=== PATIENT | male | born 1970 | race Caucasian/White ===

== ENCOUNTER 2016-05-21 15:07 | Inpatient (IN) | payer OTHER ==
[~2016-05-21] VITALS: Ht 177.8 cm; Wt 109.7 kg
[2016-05-21] VITALS (12 sets, daily range): BP systolic 131–157; BP diastolic 72–98; PULSE 65–79; RESP 14–19; O2SAT 98–99
--- NOTE | 2016-05-21 15:46 | ED.REPORT ---
HPI-Chest Pain 40 and Over Date of Service May 21, 2016 ED Provider: Dr. Johnson Pt is a 45 y/o male w/ a hx of uncontrolled HTN, former smoking, presenting to the ED via EMS c/o substernal CP onset 1.5 hours ago. 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 Upon arrival of EMS, he was in severe distress with associated severe chest pain. EKG on route in the presence of severe chest pain showed signs of posterior STEMI. He was given nitro x5 prior to arrival with almost complete relief of his chest pain upon arrival to the ED. He is a former smoker. He has been diagnosed with HTN but does not take antihypertensives. He has never had a stress test or major surgeries. Nursing Notes Stated Complaint: CHEST PAIN Nursing Notes Reviewed: Yes Allergies: Coded Allergies: No Known Allergies (Unverified , 05/21/16) Scheduled Aspirin (Aspirin) 81 Mg Tablet 81 MG PO DAILY General Time Seen by MD: 15:46 Chief Complaint Chest pain Hx Obtained From: Patient, EMS Arrived By: Ambulance Sudden in Onset?: Yes Onset Occurred: 1 - 4 hours ago Symptom Duration: Since onset Location: : Substernal Quality: Heaviness Migration/Movement: Reports: None Severity: Current: Mild Severity: Maximum: Severe Exacerbated by: Exertion, moderate, Exertion, heavy Relieved by: Nitroglycerin - EMS > 3 Similar Sx Previous: No Risk Factors HEART Score HEART for MACE: High index of susp (2), Signif ST-depression (2), Age 45 - 65 ( 1), 3+ CAD risk factors (2) HEART for MACE Score: 8-10 (high risk 50%-65%) Past Medical History Past Medical History Hypertension - uncontrolled Past Surgical History None reported Smoking History Former Smoker Ambulatory Status Independent Review of Systems Constitutional: Denies: Chills, Fever Respiratory: Denies: Non-productive cough Cardiovascular: Reports: Chest pain GI: Denies: Nausea, Vomiting Complete sys rev & neg: except as marked. Physical Exam Initial Vital Signs Vital Signs (First) Date Time Temp Pulse Resp B/P Pulse Ox O2 Delivery O2 Flow Rate FiO2 05/21/16 15:55 36.4 77 14 131/72 98 Room Air Initial VS: Reviewed, Vital signs normal Head / Eyes: Atraumatic, Normocephalic, PERRL ENT: Mucous membranes moist, Conjunctiva normal, No scleral icterus Neck: Supple, Full range of motion Extremities: Vascular intact, Neuro intact, No swelling, No tenderness Skin: Warm, Dry, No cyanosis Neurologic: Alert, Oriented, Nonfocal Psychiatric: Mood/affect normal, Behavior normal, Normal thought content General/Constitutional: Awake, Alert, Cooperative, Not toxic appearing Distress / Hydration: Positive: Distress mild Respiratory / Chest: Atraumatic, Breath sounds NL, Breath sounds = bilat, No respiratory distress, No rales, No rhonchi, No wheezing, No retractions, No stridor, No chest tenderness, No chest wall deformity, No crepitus Cardiovascular: Heart rate NL, Regular rhythm, Heart sounds NL, No gallop, No murmurs, No rubs, Cap refill not delayed, Peripheral circulation NL Abdomen: Atraumatic, Soft, Non-tender, No guarding, No rebound, No palpable mass Interpretation & Diagnostics Lab Results Interpretation Result Diagram: 05/21/16 1558 05/21/16 1558 Test 05/21/16 15:58 05/21/16 17:15 White Blood Count 11.0th/mm3 (3.8-10.1) Red Blood Count 4.78mil/mm3 (4.40-5.80) Hemoglobin 14.4g/dL (13.8-17.2) Hematocrit 41.0% (41.0-50.0) Mean Corpuscular Volume 85.8fL (81-100) Mean Corpuscular Hemoglobin 30.1pg (27.0-35.0) Mean Corpuscular Hemoglobin Concent 35.1% (32.0-37.0) Red Cell Distribution Width 12.5% (12.3-15.4) Platelet Count 243bil/L (150-400) Neutrophils (%) (Auto) 71.7% (40-74) Lymphocytes (%) (Auto) 20.4% (14-46) Monocytes (%) (Auto) 5.9% (4-12) Eosinophils (%) (Auto) 1.3% (0-5) Basophils (%) (Auto) 0.5% (0-3) Activated Partial Thromboplast Time 26.1sec (22.8-33.0) Sodium Level 138mEq/L (134-144) Potassium Level 3.8mEq/L (3.5-5.2) Chloride Level 101mEq/L (97-108) Carbon Dioxide Level 17mmol/L (18-29) Blood Urea Nitrogen 16mg/dL (6-24) Creatinine 1.31mg/dL (0.76-1.27) Estimat Glomerular Filtration Rate 63mL/min (>59) Glucose Level 173mg/dL (60-99) Calcium Level 9.2mg/dL (8.5-10.1) Magnesium Level 1.7mg/dL (1.6-2.6) Total Bilirubin 0.3mg/dL (0.0-1.2) Aspartate Amino Transf (AST/SGOT) 22U/L (0-50) Alanine Aminotransferase (ALT/SGPT) 23U/L (0-44) Alkaline Phosphatase 47U/L (25-150) Total Protein 6.7g/dL (6.4-8.4) Albumin 4.1g/dL (3.4-5.0) Hold Mckeon Top Tube Received (Received) Total Creatine Kinase 255U/L (21-232) Creatine Kinase MB 13.0ng/mL (0.0-10.4) Creatine Kinase MB % 5.1% (0.0-5.0) Troponin T 0.128ug/L (0.0-0.011) ECG Interpretation ECG Interpretation: Anterior and posterior EKG taken at time of arrival shows sinus rhythm rate [address] depression in V2-V6 and lead I with no reciprocal changes EKG taken by EMS prior to arrival in the presence of severe chest pain shows signs of possible posterior STEMI with ST depression in V2, V3, V4, and ST elevation in V8, V9 on posterior leads. R waves beginning in V1.steel spar operator Dr. Izaguirre briefly reviewed the EKG while he was passing by and opted to not activate the blood and plasma laboratory assistant and await in house EKG Time: 15:49 Interpreted by: ED physician X-Ray Chest Interpretation Chest Xray Interpretation: IMPRESSION: No acute pulmonary process. Dictated by: Angella Benitez M.D. on 05/21/2016 at 16:08 Approved by: Angella Benitez M.D. on 05/21/2016 at 16:09 View: Portable, 1 view Interpretation / Wet Read by: Interpret - Radiologist Re-Eval/Medical Decision Med Decision/Clinical Course Non-STEMI, EKGs in the field were concerning for anterior ST depressions, posterior EKGs had some ST elevation that when reviewed prior to arrival with cardiology did not meet criteria for ST elevation PA. Patient arrives essentially chest pain-free, cardiology is consulted in the ER and has come to see the patient and will ultimately take the patient to the [facility]. Source of Hx: EMS Time of Eval: 16:35 Re-Evaluation/Progress Note: Pt rechecked. CP remains minimal but he is experiencing a "terrible feeling of heartburn". Informed pt of need for admission for thorough cardiac evaluation. He initially wants to leave but after I informed him that he may have sudden cardiac he agrees to stay. Pt understands and agrees with plan for admission. All questions addressed. Consultation #1: Referral / Consult Name: Wild Copeland MD Consulted With: Cardiology Call Returned at: 16:37 Cartography Technician: Will see patient, Agrees with eval, Agrees with plan, Accepts admit Note: Reviewed prehospital EKGs prior to patient's arrival with Dr. Ramirez, felt that this EKG did not meet STEMI criteria. Will come see the patient. Will perform cath tonight. Consultation #2: Referral / Consult Name: Jonathan Bazzi MD Consulted With: Hospitalist Call Returned at: 17:34 Cartography Technician: Will see patient, Agrees with eval, Agrees with plan, Accepts admit Counseled Regarding: Diagnosis, Lab results, Need for admission Discharge & Departure Primary Impression: NSTEMI (non-ST elevated myocardial infarction) Disposition: ADMITTED TO HOSPITAL Discharge Condition All VS Reviewed: Yes Condition: Stable Referrals: NOPCP (PCP) Crit Care Except Billable Proc Time Spent: 30-74 minutes Services Performed: Patient management by me, Time spent at bedside, Reviewing test results, Reviewing imaging, Discussing patient care, Documentation in record Critical Care Notes: See MDM Scribe Attestation Portions of this note were transcribed by Rock Grover. I, Dr. Johnson, personally performed the history, physical exam and medical decision-making; I reviewed and confirmed the accuracy of the information in the transcribed note. Signed by Beronica Lyons, 05/21/16 - 1599 Colin Johnson DO May 21, 2016 15:46 ROCK GROVER May 21, 2016 15:51
[2016-05-21] MEDS ORDERED: Nitroglycerin 2% 1 Gm Ointment TOPICAL ONE (16:00)
[2016-05-21] MEDS ORDERED: Heparin 25K Unit/500mL 0.45 NS 25,000 UNIT in IV Premix 1 EACH IV ONE (16:00)
[2016-05-21] MEDS ORDERED: Ondansetron 2 mg/mL 2 mL Inj IVPUSH ONE (16:00)
[2016-05-21] MEDS ORDERED: Heparin 5,000 Unit/mL Inj IVPUSH ONE (16:00)
[2016-05-21 16:08] LABS: BASOPHILS % (AUTO) 0.5 % (0-3); EOSINOPHILS % (AUTO) 1.3 % (0-5); MONOCYTES % (AUTO) 5.9 % (4-12); Mean Corpuscular Hemoglobin 30.1 pg (27.0-35.0); Mean Corpuscular Volume 85.8 fL (81-100); NEUTROPHILS % (AUTO) 71.7 % (40-74); Platelet Count 243 bil/L (150-400)
--- NOTE | 2016-05-21 16:10 | DRSVH ---
PROCEDURE: X-RAY CHEST ONE VIEW, PORTABLE ([id number]) INDICATIONS: CHEST PAIN TECHNIQUE: One view of the chest was acquired. COMPARISON: None. FINDINGS: Surgical changes and devices: None. Lungs and pleura: No pleural effusions or pneumothorax. Lungs are clear. Mediastinum: Mediastinal contours appear normal. Heart size is normal. Bones and chest wall: No suspicious bony lesions. Overlying soft tissues appear unremarkable. IMPRESSION: No acute pulmonary process. Dictated by: Angella Benitez M.D. on 05/21/2016 at 16:08 Approved by: Angella Benitez M.D. on 05/21/2016 at 16:09
[2016-05-21 16:30] LABS: TROPONIN T 0.014 ug/L (0.0-0.011)
[2016-05-21] MEDS ORDERED: LidocaineVisc 2%:Antacid 1:1 10 mL Syringe PO ONE (16:35)
[2016-05-21] MEDS ORDERED: ASPI-973 PO (16:37)
[2016-05-21 16:41] LABS: Magnesium 1.7 mg/dL (1.6-2.6)
[2016-05-21] MEDS ORDERED: Alum-Mag Hydrox-Simeth 30 mL Suspension ONE (16:49)
[2016-05-21] MEDS ORDERED: diphenhydrAMINE 2.5 mg/mL 5 mL Syrup ONE (16:50)
[2016-05-21] MEDS ORDERED: 0.9% Sodium Chloride 1,000 ML IV SCH (16:53)
[2016-05-21] MEDS ORDERED: Atropine 1 mg/10 mL (Code) Syringe IVPUSH PRN ×2 (16:55→19:25)
[2016-05-21] MEDS ORDERED: Polyethylene Glycol (PEG) 17 Gm Powder PO PRN (16:55)
[2016-05-21] MEDS ORDERED: Alum-Mag Hydrox-Simeth 30 mL Suspension PO PRN (16:55)
[2016-05-21] MEDS ORDERED: Ondansetron 2 mg/mL 2 mL Inj IVPUSH PRN ×2 (16:55→19:25)
[2016-05-21] MEDS ORDERED: Senna-Docusate 8.6-50 mg Tablet PO PRN (16:55)
--- NOTE | 2016-05-21 17:01 | PCM.HPMED ---
Subjective Date of Service May 21, 2016 Primary Provider: Admitting Physician: Primary Care Physician: Graciela Davidson MD Attending Physician: Admit Status: From the Emergency Department, Full Admit, [facility] Telemetry Chief Complaint: Chest pain History of Present Illness: Juvencio Crump is a 45 yo male with Uncontrolled Hypertension, previous Transient ischemic attack and current smoker, presenting to [facility] emergency department via EMS c/o substernal Chest pain. Patient states the onset was 1.5 hours prior while at work. 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 Associated symptoms includes diaphoresis. Upon arrival of EMS, he was in severe distress with associated severe chest pain. EKG on route in the presence of severe chest pain showed signs of posterior STEMI. He was given nitro x5 prior to arrival with almost complete relief of his chest pain upon arrival to the hospital He is a current smoker. He has been diagnosed with Hypertension but does not take antihypertensives. He has never had a stress test or major surgeries. He also reports having a mini stroke years ago Case discussed with Dr Ratliff, he discussed case with disease education specialist Stemming Machine Operator Dr Ramirez , initiating medical treatment with Heparin and aspirin. Review of Systems: Pertinent positives as noted in HPI. All other systems were reviewed and are negative Allergies Coded Allergies: No Known Allergies (Unverified , 05/21/16) Home Medications Nicotine lozenges PMH Hypertension Nicotine dependence History of transient ischemic attack Born with a single kidney . Surgical History None reported Family History Mother had congestive heart failure due to kidney failure Social History Hx Alcohol Use: Yes (beer and wine) Alcoholic Drinks Per Day: 3 beers or a bottle of wine 2-3 times per week Hx Tobacco Use: Yes Smoking Status: Former Smoker Living Arrangement: with Family Exam Vital Signs Vital Sign - Last Date Time Temp Pulse Resp B/P Pulse Ox O2 Delivery O2 Flow Rate FiO2 05/21/16 15:55 36.4 77 14 131/72 98 Room Air Exam General: Alert, Oriented X3, Cooperative, No acute Distress Eyes: PERRLA, Scleral Anicteric Mouth: Mouth Normal, Mucous Membranes Moist/[place] Neck: Supple, no Thyromegaly, trachea central. Chest & Lungs: Clear to auscultation & percussion, No adventitious breath sounds, no crackles, no wheeze Cardiovascular: Normal S1, Normal S2, No Murmurs/Rubs/Gallops, Regular Rate/ Rhythm, (No JVD, no peripheral edema) Pulses: Radial (present and equal), Dorsalis Pedi (present and equal) Abdomen: Soft, Non-tender, Non-distended, Normoactive bowel tones. Musculoskeletal: Unremarkable. Normal range of motion, no swollen or erythematous joints Extremities: No edema, no cyanosis, no clubbing. Skin: No rashes. Warm and dry, no erythematous areas Neurological: Grossly neurologically intact, Normal Speech, Sensation Intact Lymphatic: Lymph nodes Cervical and Axillary not palpable. Lab and Diagnostics Labs Laboratory Tests Test 05/21/16 15:58 White Blood Count 11.0th/mm3 (3.8-10.1) Red Blood Count 4.78mil/mm3 (4.40-5.80) Hemoglobin 14.4g/dL (13.8-17.2) Hematocrit 41.0% (41.0-50.0) Mean Corpuscular Volume 85.8fL (81-100) Mean Corpuscular Hemoglobin 30.1pg (27.0-35.0) Mean Corpuscular Hemoglobin Concent 35.1% (32.0-37.0) Red Cell Distribution Width 12.5% (12.3-15.4) Platelet Count 243bil/L (150-400) Neutrophils (%) (Auto) 71.7% (40-74) Lymphocytes (%) (Auto) 20.4% (14-46) Monocytes (%) (Auto) 5.9% (4-12) Eosinophils (%) (Auto) 1.3% (0-5) Basophils (%) (Auto) 0.5% (0-3) Activated Partial Thromboplast Time 26.1sec (22.8-33.0) Sodium Level 138mEq/L (134-144) Potassium Level 3.8mEq/L (3.5-5.2) Chloride Level 101mEq/L (97-108) Carbon Dioxide Level 17mmol/L (18-29) Blood Urea Nitrogen 16mg/dL (6-24) Creatinine 1.31mg/dL (0.76-1.27) Estimat Glomerular Filtration Rate 63mL/min (>59) Glucose Level 173mg/dL (60-99) Calcium Level 9.2mg/dL (8.5-10.1) Magnesium Level 1.7mg/dL (1.6-2.6) Total Bilirubin 0.3mg/dL (0.0-1.2) Aspartate Amino Transf (AST/SGOT) 22U/L (0-50) Alanine Aminotransferase (ALT/SGPT) 23U/L (0-44) Alkaline Phosphatase 47U/L (25-150) Troponin T 0.014ug/L (0.0-0.011) Total Protein 6.7g/dL (6.4-8.4) Albumin 4.1g/dL (3.4-5.0) Hold Mckeon Top Tube Received (Received) Result Diagram: 05/21/16 1558 05/21/16 1558 X-Rays, CTs and MRIs X-RAY CHEST ONE VIEW, PORTABLE 05/21 IMPRESSION: No acute pulmonary process. Dictated by: Angella Benitez M.D. on 05/21/2016 at 16:08 Approved by: Angella Benitez M.D. on 05/21/2016 at 16:09 Assessment & Plan Juvencio Crump is a 45 y/o male with Uncontrolled Hypertension, former smoking , presenting to [facility] emergency department via EMS c/o substernal Chest pain. 1. Non ST elevation Myocardial Infarction. Present on admission Risk factors for Acute coronary syndrome prior TIA, untreated Hypertension, sedentary lifestyle. No prior stress test or Myocardial infarction. - monitor on telemetry - continue anticoagulation with Heparin - continue Plavix and Aspirin for antihrombotic therapy - trending cardiac biomarkers - Dr Ramirez evaluated patient and felt cardiac cath was indicated 2. Acute Kidney Injury. Present on admission Due to pre renal azotemia due to dehydration. Of note the patient has a single kidney - avoid nephrotoxic insults - IV fluids after cardiac cath - monitor urine output 3. Hypertension Uncontrolled - will have Cardiology place patient on antihypertensive 4. Nicotine dependence. Cessation discussed and encouraged - Nicotine patch tomorrow - Acetaminophen as needed for mild pain/fever/headache - Bowel regimen as needed - Antiemetic as needed Patient admitted under inpatient status with expected length of stay > 2 midnights for severity of present symptoms, complexities of treatment plan and risk for adverse event . Resuscitation Status: CPR: Attempt Resuscitation Jonathan Bazzi MD May 21, 2016 17:01
[2016-05-21] MEDS ORDERED: Heparin 1,000 Units/500 mL NS Premix IV ONE (17:33)
[2016-05-21] MEDS ORDERED: 0.9% Sodium Chloride 1,000 ML ONE (17:33)
[2016-05-21] MEDS ORDERED: Heparin 1,000 Unit/mL 10 mL Inj ONE ×2 (17:33)
[2016-05-21] MEDS ORDERED: Nitroglycerin 50,000 mcg/250 mL D5W Premix IV ONE (17:33)
--- NOTE | 2016-05-21 17:59 | CONS ---
[address] [address] CONSULTATION REPORT PATIENT: JESENIA CHENEY : 1970 MR#: [id number] ADMIT: 05/21/2016 JOB ID: [id number] DATE OF SERVICE: 05/21/2016 REQUESTING PHYSICIAN: Colin Ratliff DO REASON FOR EVALUATION: Chest discomfort. HISTORY: The patient is a 45-year-old male with history of hypertension. He was in his usual state of health until today around 2:15 p.m. 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 The water line broke. He moved out quickly, and he experienced chest pressure. He rated it about 7/10. He also felt very weak. The discomfort radiated to his jaw. It was associated with short of breath. He denied nausea or dizziness. He took aspirin with partial relief. He called medics and was given five nitroglycerin. The discomfort has disappeared. He remains having tightness about 1/10. PAST MEDICAL HISTORY: Hypertension. PAST SURGICAL HISTORY: None. HOME MEDICATIONS: Aspirin 81 mg daily. SOCIAL HISTORY: He is a home health care provider. He used to smoke one pack per day for 20 years and quit smoking a couple years ago. He drinks alcohol 3-4 times per week with three cans of beer or one bottle of wine. He denies drugs. FAMILY HISTORY: His father suffered a heart attack in his 60s. His mother has Crohn's disease. REVIEW OF SYSTEMS: All 10 systems reviewed and pertinent for he has single left kidney. EXAMINATION: Reveals a middle-aged male appearing in no acute distress. Temperature is 36.4. Blood pressure is 131/72. Pulse 77. Skin is warm and dry. Head and face have normal configuration. Nonicteric sclerae. Moist mucosa. Neck supple. No jugular venous distention or carotid bruits. Chest: Normal expansion. Lungs are clear to auscultation. Heart: The first and second heart sounds normal. No gallop or murmur. Abdomen: Soft, nontender and without hepatosplenomegaly. Back: No CVA tenderness. Extremities: No clubbing, cyanosis, or edema. Peripheral pulses equal bilaterally. Neurologic: Grossly intact. DIAGNOSTIC DATA: EKG in ED showed normal sinus rhythm. Normal EKG. Blood tests show hemoglobin 14.4, WBC 11.0, platelet 243. Sodium 138, potassium 3.8, chloride 101, bicarb 17, BUN 16, creatinine 1.31, glucose 173. Troponin T is 0.014. IMPRESSION: 1. [id number] myocardial infarction. 2. Hypertension. 3. History of 20 pack-year smoking. 4. Congenital single left kidney. PLAN: The patient will be admitted to telemetry unit. He will be treated with aspirin, heparin, beta zev, NEVIN inhibitor and statin. He will undergo coronary angiogram and possible percutaneous coronary intervention. The risks and benefits of procedure have been explained to the patient. He understands and agrees to proceed with procedure. GERMAN
[2016-05-21 18:14] LABS: TROPONIN T 0.128 ug/L (0.0-0.011)
[2016-05-21] MEDS ORDERED: fentaNYL-PF 50 mCg/mL 2 mL Inj ONE ×2 (18:15→18:44)
[2016-05-21] MEDS ORDERED: Eptifibatide 20,000 mCg/10 mL Inj ONE (18:38)
[2016-05-21] MEDS ORDERED: Atropine 1 mg/10 mL (Code) Syringe ONE (18:58)
[2016-05-21] MEDS ORDERED: 0.9% Sodium Chloride 250 ML IV PRN (19:21)
[2016-05-21] MEDS ORDERED: HYDROcodone-APAP 5-325 mg Tablet PO PRN (19:25)
--- NOTE | 2016-05-21 19:45 | DI95 ---
[address] [address] INTERVENTIONAL CARDIAC CATHETERIZATION PATIENT: JESENIA CHENEY : 1970 MR#: [id number] ADMIT: 05/21/2016 JOB ID: [id number] DATE OF PROCEDURE: 05/21/2016 PATIENT PROFILE: The patient is a 45-year-old male who presented with [id number] myocardial infarction. PROCEDURE: 1. Retrograde left heart catheterization. 2. Selective coronary angiography. 3. Balloon angioplasty and stenting to the mid circumflex artery. 4. Intracoronary thrombolysis. VASCULAR CLOSURE DEVICE: StarClose. COMPLICATION: None. METHOD: Retrograde left heart catheterization was performed from the right groin under 1% lidocaine local anesthesia using a 6-Iraqi sheath. Selective coronary angiogram was performed in multiple projections, including cranial and caudal angulations with hand injected contrast via JL 3.5 and 3DRC catheters. The JL4 catheter could not properly engage the left coronary ostium. Heparin 10,000 units were given. A Runthrough wire was placed inside the circumflex artery. Integrilin 9.5 cc was given intracoronary due to large intraluminal thrombus. The mid circumflex artery lesion was pre-dilated with a 2.5 x 12 mm balloon. A Resolute Integrity 2.5 x 12 mm stent was placed inside the lesion and deployed at 11 atmospheres for 20 seconds. Final angiogram was obtained. The 3DRC catheter was used for left ventricular pressure measure. This catheter was withdrawn. Right femoral angiogram was performed before sheath removal. Hemostasis was achieved by using a StarClose device. The patient tolerated the procedure well. He was transferred to [facility] in good condition. TOTAL CONTRAST USED: 100 cc. FLUOROSCOPY TIME: 2.5 minutes. Total radiation dose is 540 milligray. RESULTS: 1. Selective coronary angiogram: a. Left main coronary artery is normal. b. The left anterior descending artery is transapical and has diffuse irregularity of 20% to 30% stenosis in the proximal and mid portions. c. The circumflex artery is subtotal occluded in the mid portion with large intraluminal thrombus. There is CHARITO-1 flow into the second and third obtuse marginal branches. d. The dominant right coronary artery has 99% stenosis in the proximal portion with CHARITO-1 flow. There are left to right collaterals. 2. Balloon angioplasty and stenting was performed to the critical culprit mid circumflex artery lesion by deploying one drug-eluting stent (2.5 x 12 mm) to achieve an excellent angiographic result with CHARITO-3 flow distally. This was performed in conjunction with intracoronary thrombolysis. 3. Aortic pressure is 129/86 mmHg. Left ventricular pressure is 130/0 mmHg. 4. Left ventricular end diastolic pressure is 10 mmHg. CONCLUSION: 1. Minor disease of the left anterior descending. 2. Critical 99% stenosis of the mid circumflex artery with large intraluminal thrombus and CHARITO-1 flow. This was successfully treated with one drug eluting stent and intracoronary thrombolysis. 3. Critical 99% stenosis of the proximal right coronary artery with CHARITO-1 flow with left to right collaterals. 4. LVEDP is 10 mmHg. PLAN: Intervention to the right coronary artery will be staged due to the patient having a single left kidney. MTDD
--- NOTE | 2016-05-21 20:30 | NUR ---
back from laboratory animal care veterinarian pt back from laboratory animal care veterinarian, balloon and stent to pts circ, right groin star closer, per laboratory animal care veterinarian pt will go back in the morning to have his RCA stented, NS at 100cc/hr, pt denies any pain, family in room, pt sipping on water and tolerating. pts sister went to go get pt something to eat, pt on bedrest till 0130, admit done prior to arrival to floor, groin site looks good, no bleeding or hematoma noted, pt with good pedal pulses, tele SR pt on RA
[2016-05-22] VITALS (8 sets, daily range): BP systolic 121–148; BP diastolic 82–97; PULSE 61–88; RESP 11–18; O2SAT 96–99
[2016-05-22] MEDS: Sodium Chloride LOK Flush 10 mL Syringe IVFLUSH SCH ×3 (00:57→16:37)
[2016-05-22 01:18] LABS: TROPONIN T 6.03 ug/L (0.0-0.011)
--- NOTE | 2016-05-22 03:20 | NUR ---
off bedrest pt off bedrest at 0130 around 0300 pt wanting to stand and move around a little, pt stood and brushed teeth, pt with a small spot on right groin dsg, no hematoma felt, great pedal pulses, pt denies any CP or groin pain
[2016-05-22] MEDS: 0.9% Sodium Chloride 1,000 ML IV PRN (05:10)
[2016-05-22 05:11] LABS: BASOPHILS % (AUTO) 0.3 % (0-3); EOSINOPHILS % (AUTO) 1.3 % (0-5); Mean Corpuscular Hemoglobin 30.1 pg (27.0-35.0); Mean Corpuscular Volume 86.8 fL (81-100); NEUTROPHILS % (AUTO) 68.4 % (40-74); Platelet Count 224 bil/L (150-400)
--- NOTE | 2016-05-22 05:44 | NUR ---
headache pt c/o headache, gave 975mg PO tylenol, effective for headache
--- NOTE | 2016-05-22 09:07 | PROG NOTE ---
[address] [address] PROGRESS NOTE PATIENT: JESENIA CHENEY : 1970 MR#: [id number] ADMIT: 05/21/2016 JOB ID: [id number] DATE: 05/22/2016 SUBJECTIVE: The patient is a 45-year-old male who presented with acute posterior myocardial infarction yesterday. He underwent angioplasty and stent placement to the circumflex artery. The patient reports feeling well today. He is a little sore in his right groin. He denies chest discomfort, shortness of breath, orthopnea, or PND. OBJECTIVE: Temperature is 36.8. Blood pressure is 143/89. Pulse 74. Body weight is 103.5 kg. Head and face have normal configuration. Anicteric sclerae. Moist mucosa. Neck: No jugular venous distention or carotid bruits. Chest: Normal expansion. Lungs are clear to auscultation. Heart: The first and second heart sound normal. No gallop or murmur. Abdomen is soft, nontender. Extremities: No clubbing, cyanosis or edema. Small right groin hematoma. BLOOD TESTS: Show hemoglobin 13.7, WBC 9.9, platelet 224. Sodium 139, potassium 4.3, chloride 105, bicarbonate 19, BUN 13, creatinine 1.09, glucose 127. Hemoglobin A1c 6.1. CK went up to 2,531 with a troponin T went up to 6.03. Cholesterol 189, triglycerides 371, HDL 27, LDL 87. IMPRESSION: 1. Acute posterior myocardial infarction. 2. Status post stent to the mid circumflex artery with one drug-eluting stent. 3. Critical stenosis of the proximal mid right coronary artery. 4. Pre diabetes. 5. Dyslipidemia. 6. Hypertension. 7. History of 20 pack year smoking. 8. Congenital unilateral left kidney. PLAN: The patient will be transferred to telemetry unit today. I plan to perform intervention procedure to the right coronary artery lesion tomorrow. He will continue on aspirin, clopidogrel and beta zev. I will start him on NEVIN inhibitor and a statin today. GERMAN
--- NOTE | 2016-05-22 12:50 | DRSVH ---
[facility] [address] [place] [address] Echocardiogram Report Name: JESENIA CHENEY NStudy Date: 05/22/2016 Height: 7 0 in Hospital Exam Location: [facility] Weight: 2 28 lb Gender: Male BSA: 2.2 m2 : 1970 Age: 45 yrs BP: 121/8 2 mmHg Reason For Study: CP, S/P STENT Ordering Physician: HOSPITALIST [facility] Performed By: Ruth Babcock Referring Physician: DR. PENALOZA, DR. PALOMINO Interpretation Summary The left ventricle is normal in size. Left ventricular systolic function is mildly reduced. The ejection fraction is estimated to be 45-50%. There is hypokinesis along the proximal and mid anterolateral, inferolateral wall and part of the inferior wall. Assessment of diastolic parameters indicates normal left ventricular diastolic function and normal filling pressures. The right ventricle is normal in size and function. The right ventricular systolic pressure is estimated at 25 mmHg assuming a right atrial pressure of 3 mm Hg. The left atrium is mildly dilated. Right atrial size is normal. There is no significant valvular heart disease. The aortic root is normal size. Procedure: A two-dimensional transthoracic echocardiogram with color flow and Doppler was performed. The study quality was technically adequate. The apical views were difficult to obtain and are suboptimal in quality. A contrast injection of Definity was performed to improve assessment of LV function. Contrast was injected into an intravenous site in the right arm. A total of 5 cc of agitated saline was given. There is no prior echocardiogram noted for this patient. The patient was in normal sinus rhythm during the exam. The patient did well with the Definity Contrast. Left Ventricle: The left ventricle is normal in size. There is normal left ventricular wall thickness. Left ventricular systolic function is mildly reduced. The ejection fraction is estimated to be 45-50%. There is hypokinesis along the proximal and mid anterolateral, inferolateral wall and part of the inferior wall. Assessment of diastolic parameters indicates normal left ventricular diastolic function and normal filling pressures. Right Ventricle: The right ventricle is normal in size and function. Atria: The left atrium is mildly dilated. Right atrial size is normal. The interatrial septum is intact with no evidence for an atrial septal defect. Mitral Valve: The mitral valve leaflets appear normal. There is no evidence of stenosis, fluttering, or prolapse. There is mild mitral regurgitation. Aortic Valve: The aortic valve is trileaflet. The aortic valve opens well. No aortic regurgitation is present. Tricuspid Valve: The tricuspid valve leaflets are thin and pliable. There is trace tricuspid regurgitation. The right ventricular systolic pressure is estimated at 25 mmHg assuming a right atrial pressure of 3 mm Hg. Pulmonic Valve: The pulmonic valve is not well visualized. There is no pulmonic valvular regurgitation. There is no significant valvular heart disease. Great Vessels: The aortic root is normal size. The dimensions of the ascending aorta are normal. The pulmonary artery is normal size. The IVC is of normal diameter and collapses greater than 50% with a sniff. This suggests a low right atrial pressure of 3 mm Hg. Pericardium/ Pleura There is no pericardial effusion. There is no pleural effusion. MMode/2D Measurements & Calculations LVIDd: 5.4 cm LA dimension: 3.9 cm RA long axis LVOT diam: 2.0 cm LVIDs: 3.7 cm AoV Opening FS: 30.1 % LA A2 area: 26.4 cm RA area EPSS: 0.38 cm LA A4 area: 21.9 cm Ao root diam IVSd: 0.97 cm LA length (vol) : 18.2 cm LVPWd: 1.1 cm RA vol asc Aorta Diam LA vol: 82.3 ml : 54.0 ml LA vol index RA Ao Arch Diam (Prox : 24.5 mm/ Trans): 3.3 cm RVDd major IVC diam: 1.1 cm : 7.8 cm LV funk. diameter/BSA LV sys. diameter/BSA RVD2 (mid) (cm/m^2): 2.4 (cm/m^2): 1.7 : 3.5 cm Doppler Measurements & Calculations Ao V2 max MV E max francesco MV E/A: 1.6 TR max francesco : 135.5 cm/sec : 94.6 cm/sec Med Peak E' Francesco : 232.6 cm/sec Ao max P.3 mmHg MV A max francesco TR max PG Ao mean P.0 mmHg : 60.2 cm/sec E/E' med: 9.2 : 21.6 mmHg LVOT Max Francesco MV P1/2t: 70.6 msec Lat Peak E' Francesco PA V2 max : 102.5 cm/sec : 93.3 cm/sec ZANDRA(I,D): 2.4 cm E/E' lat: 8.4 PA mean PG sev ratio: 0.74 E/e' average PA Accel Time Pulm A Revs Dur : 0.10 sec MV A dur : 0.11 sec MV P1/2t max francesco Ao V2 mean LV V1 max PG PA V2 mean : 95.6 cm/sec : 63.7 cm/sec MVA(P1/2t): 3.1 cm2 Ao V2 VTI: 26.2 cm LV V1 VTI ZANDRA(V,D): 2.5 cm2 : 19.3 cm ZANDRA indexed to BSA Pulm A Revs Dur - MV (cm^2/m^2): 1.1 A Dur: 0.02 msec Reading Physician:PM
--- NOTE | 2016-05-22 14:28 | NUR ---
Social Work: Screen Data/Assessment: Per EMR review, pt is a 45 year old male admitted for NSTEMI. Pt insurance is [employer] (a [employer] insurance). PCP is Graciela Davidson MD. NOK is Jill Crump, spouse. Advanced directives info declined during admission. Readmit score is low, 0/8. Pt lives in [place] with his spouse. He is I at baseline. EMR reviewed; pt scheduled for cath tomorrow (Thursday). No sw needs identified at this time. Plan: anticipate pt to discharge home via POV once medically stable; [facility] [employer] to continue to follow if needs arise. JACQUELINE Ortiz
--- NOTE | 2016-05-22 16:24 | PCM.PNMED ---
Subjective Date of Service May 22, 2016 Subjective From a sexual male with no known coronary artery disease presents with acute coronary syndrome. No recurrent chest pain since angiogram and stent on 05/12 9 PM. There is no dyspnea. Exam Vital Signs Vital Sign - Last Date Time Temp Pulse Resp B/P Pulse Ox O2 Delivery O2 Flow Rate FiO2 05/22/16 12:00 36.5 71 18 139/88 99 Room Air Intake and Output 05/21/16 05/21/16 05/22/16 Cumulative From/Thru 15:00 23:00 07:00 05/21/16 15:55 - 05/22/16 06:22 Intake Total 1587 ml 1587 ml Output Total 1300 ml 1300 ml Balance 287 ml 287 ml Intake Oral 536 ml 536 ml IV Total 1051 ml 1051 ml Output Urine Total 1300 ml 1300 ml Exam General: Healthy-appearing no acute distress HEENT: sclerae anicteric, oral mucosa moist Neck: no JVD Chest: clear to auscultation Cardiac: S1S2, no murmur Abdomen: BS normal, non-tender; chronic catheter site without hemorrhage or swelling Extremities: Trace peripheral edema Neuro: A&O, cranial nerves symmetric, motor strength 5/5, coordination normal IVs and Medications Medications Reviewed: Medications were reviewed in detail Lab and Diagnostics Result Diagram: 05/22/16 0425 05/22/165 X-Rays, CTs and MRIs X-RAY CHEST ONE VIEW, PORTABLE 05/21 IMPRESSION: No acute pulmonary process. Dictated by: Angella Benitez M.D. on 05/21/2016 at 16:08 Approved by: Angella Benitez M.D. on 05/21/2016 at 16:09 12-lead ECG Normal sinus rhythm rate 68. [address] segment depressions. Prominent R waves in V1 to V3 Cardiac Echo Impressions Echocardiogram Report Name: JESENIA CHENEY Sophia Study Date: 05/22/2016 Interpretation Summary The left ventricle is normal in size. Left ventricular systolic function is mildly reduced. The ejection fraction is estimated to be 45-50%. There is hypokinesis along the proximal and mid anterolateral, inferolateral wall and part of the inferior wall. Assessment of diastolic parameters indicates normal left ventricular diastolic function and normal filling pressures. The right ventricle is normal in size and function. The right ventricular systolic pressure is estimated at 25 mmHg assuming a right atrial pressure of 3 mm Hg. The left atrium is mildly dilated. Right atrial size is normal. There is no significant valvular heart disease. The aortic root is normal size. . Assessment & Plan Jesenia Cheney is a 45 y/o male with poorly controlled hypertension, former smoking, presenting to [facility] emergency department via EMS c/o substernal Chest pain. #. Non ST elevation Myocardial Infarction. Present on admission. Risk factors for Acute coronary syndrome prior TIA, untreated Hypertension, sedentary lifestyle. No prior stress test or Myocardial infarction. Underwent left circumflex angioplasty with MELANIE. - monitor on telemetry - Discontinue Heparin - continue Plavix for 1 year, and Aspirin for antithrombotic therapy - Repeat coronary intervention on RCA #. Acute systolic congestive heart failure. LVEF 45%. Related to current ischemic syndrome; may improve with revascularization and recovery. - Beta zev and NEVIN inhibitor - Aspirin and statin #. Acute Kidney Injury. Present on admission. Patient with congenital unilateral kidney - avoid nephrotoxic insults - IV fluids after cardiac cath - monitor urine output #. Hypertension, uncontrolled -Beta zev and NEVIN inhibitor #. Nicotine dependence. Cessation discussed and encouraged. - OK for patient to use his home supply of nicotine lozenges - Acetaminophen as needed for mild pain/fever/headache - Bowel regimen as needed - Antiemetic as needed Disposition: Anticipate repeat cardiac intervention on 05/23 with discharge home likely 4/ AM . GI Prophylaxis: Not indicated Resuscitation Status: CPR: Attempt Resuscitation Time spent 35 minutes Jerel Castaneda MD May 22, 2016 16:24
--- NOTE | 2016-05-22 17:53 | NUR ---
Groin site/activity Pt right groin site soft, with some old bruising and old drainage on dry gauze. Pt reports some discomfort when pressing on site, but not just during moving around or doing activities. Pt denies any SOB, chest pain, N&V or dizziness. SBA to BSC, pt using urinal independently. Pt to go back to center medical and lab director to get RCA stented at some point. Frequent rounding continues.
[2016-05-23] VITALS (30 sets, daily range): BP systolic 86–155; BP diastolic 49–78; PULSE 61–79; RESP 12–19; O2SAT 94–99
[2016-05-23 03:03] LABS: Mean Corpuscular Hemoglobin 29.7 pg (27.0-35.0); Mean Corpuscular Volume 87.4 fL (81-100)
[2016-05-23] MEDS: Sodium Chloride LOK Flush 10 mL Syringe IVFLUSH SCH ×3 (04:09→17:20)
--- NOTE | 2016-05-23 05:45 | NUR ---
Tele/Groin Site Patient in sinus rhythm with rates in the 60s-70s overnight. No ectopy noted. Denies chest pain and shortness of breath. Right groin site with some bruising, generally soft with a small hematoma. Small amount of sanguineous drainage noted on bandaid. Continue to monitor.
[2016-05-23] MEDS ORDERED: Heparin 1,000 Units/500 mL NS Premix IV ONE (08:51)
[2016-05-23] MEDS ORDERED: Heparin 1,000 Unit/mL 10 mL Inj ONE ×2 (08:51→09:52)
[2016-05-23] MEDS ORDERED: Nitroglycerin 50,000 mcg/250 mL D5W Premix IV ONE (08:51)
[2016-05-23] MEDS ORDERED: fentaNYL-PF 50 mCg/mL 2 mL Inj ONE ×3 (09:25→14:05)
[2016-05-23] MEDS ORDERED: Phenylephrine/NS-PF 100 mCg/mL 5 mL Syringe IVPUSH ONE (09:37)
[2016-05-23] MEDS ORDERED: Atropine 1 mg/10 mL (Code) Syringe ONE (09:37)
--- NOTE | 2016-05-23 13:07 | NUR ---
Off floor to Manager Medical Writing Pt off floor to rn lab at approximately 0910. Bilateral pulses marked, all skin prepped, medications given prior to to Manager Medical Writing.
--- NOTE | 2016-05-23 13:08 | DI95 ---
[address] [address] INTERVENTIONAL CARDIAC CATHETERIZATION PATIENT: JESENIA CHENEY : 1970 MR#: [id number] ADMIT: 05/21/2016 JOB ID: [id number] DATE OF PROCEDURE: 05/23/2016 PATIENT PROFILE: The patient is a 45-year-old male who presented with acute posterior myocardial infarction two days ago. He was found to have critical stenosis of the proximal right coronary artery and occluded mid right coronary artery at that time. There was left to right collateral. PROCEDURE: Balloon angioplasty and stenting to the proximal, mid and distal right coronary artery. VASCULAR CLOSURE DEVICE: StarClose. COMPLICATIONS: None. METHOD: Vascular access was obtained from the left groin under 1% lidocaine local anesthesia using a 6-Tristanian sheath. This was performed under ultrasound guidance. Heparin 11,000 units were given. A 6-Tristanian 3DRC guide was advanced to the right coronary ostium. A Runthrough wire with the backup of a 2.0 x 8 mm balloon was used to cross the chronic occlusion of the mid right coronary artery. After this wire went through, the lesion was pre-dilated with a 1.25 Sprinter balloon. After the position was confirmed in the true lumen, the right coronary artery was pre-dilated with a 2.5 x 20 mm balloon. A Resolute Integrity 2.25 x 14 mm stent was placed in the distal mid right coronary artery lesion and deployed at 11 atmospheres for 20 seconds. A second Resolute 2.25 x 22 mm stent was placed proximal to the first stent and deployed at 12 atmospheres for 15 seconds. The third Resolute 2.5 x 22 mm stent was placed in the proximal lesion and deployed at 14 atmospheres for 15 seconds. Nitroglycerin was given intracoronary. Angiogram at this point demonstrated distal lesions. A Xience 2.25 x 12 mm stent was placed distal to the first stent and deployed at 15 atmospheres for 15 seconds. Another Xience 2.25 x 12 mm stent was placed at the distal most lesion and deployed at 14 atmospheres for 15 seconds. Final angiogram was obtained. Following sheath removal, hemostasis was achieved by using a StarClose device. The patient tolerated the procedure well. He was transferred to [facility] in good condition. TOTAL CONTRAST USED: 180 cc. FLUOROSCOPY TIME: 10.6 minutes. RESULTS: Successful balloon angioplasty and stenting to the occluded right coronary artery by deploying five drug-eluting stents to achieve an excellent angiographic result with CHARITO-3 flow distally. GERMAN
--- NOTE | 2016-05-23 14:24 | DRSVH ---
PROCEDURE: CT PELVIS WITHOUT CONTRAST ([id number]) INDICATIONS: HEMATOMA TECHNIQUE: Noncontrast 3 mm axial sections acquired through the bony pelvis, with coronal and sagittal reformatt ing. COMPARISON: None. FINDINGS: Image quality: Diagnostic Bones: No acute fracture or dislocation is evident involving the osseous structures of the pelvis. T here are mild degenerative changes at the lumbosacral junction. No suspicious osseous lesions are ev ident. Small bone island is evident within the left femoral head. Soft tissues: Extensive subcutaneous edema/fluid is evident within the left inguinal region, which tr acks inferiorly into the scrotal sac with high attenuation fluid is noted surrounding the left testic le. A very small amount of fluid is seen extending into the pelvic cavity and along the course of th e left external iliac artery. There are no loculated fluid collections within the pelvic cavity. Imaged bowel loops are nondilated. There is atherosclerosis of the iliac arteries. No intraperitone al free air or loculated fluid collections are present. Contrast is seen within the urinary bladder. No significant bladder wall thickening is present. The prostate is not enlarged. IMPRESSION: 1. Subcutaneous fluid/hemorrhage within the left inguinal region extends into the scrotum with a mod erate-sized hematoma noted in the scrotal sac. 2. Minimal edema/fluid extending into the pelvic cavity along the left external iliac artery is also noted. No loculated or large intrapelvic hematomas. Note: These findings were discussed with Dr. Copeland at 1421 hours (PST) on 05/23/16. Dictated by: Ish Harper M.D. on 05/23/2016 at 13:12 Approved by: Ish Harper M.D. on 05/23/2016 at 13:22
[2016-05-23] MEDS ORDERED: fentaNYL-PF 50 mCg/mL 2 mL Inj IVPUSH ONE (14:25)
--- NOTE | 2016-05-23 15:00 | NUR ---
Pt taken to CT with femstop on Lt groin puncture site. Pt developed large hematoma after transferring to CT table. Manual pressure held in CT and when pt returned to [facility]. Hemostasis achieved at 1500.
--- NOTE | 2016-05-23 16:53 | NUR ---
Arrival to CCU. Alert and oriented x 3. Mild pain reported at left groin site, rating 3/10. Denies need for pain medication at this time. No reported chest discomfort. Transparent dressing to left groin site. Faint bruising to left groin, dried blood present under dressing and in groin. No hematoma or sign of active bleeding. +1 pulses with doppler. SR per monitoring specialist. PRBCs transfusing and NS IVFs at 100cc/hr. Pt has not yet voided. Denies nausea. Pt oriented to room and call light. Plan of care and activity restrictions reviewed at bedside. Will continue to monitor.
--- NOTE | 2016-05-23 17:02 | NUR ---
Pt transferred to CCU bed 2013. Pt receiving 1 unit PRBC, Lt groin site soft, no new bleeding noted, VSS. Report and pt handoff given to Gisele MCKEON.
--- NOTE | 2016-05-23 17:14 | PCM.PNMED ---
Subjective Date of Service May 23, 2016 Subjective 45 yo male with no known coronary artery disease presents with acute coronary syndrome. No recurrent chest pain since LCA stent on 05/21 PM. There is no dyspnea. Experienced some periprocedural blood loss today. Currently receiving a blood transfusion. Reports feeling slightly tired after procedures today but no specific complaints. Exam Vital Signs Vital Sign - Last Date Time Temp Pulse Resp B/P Pulse Ox O2 Delivery O2 Flow Rate FiO2 05/23/16 16:30 74 16 98/49 98 Room Air 05/23/16 07:59 36.4 Intake and Output 05/22/16 05/22/16 05/23/16 Cumulative From/Thru 15:00 23:00 07:00 05/21/16 15:55 - 05/23/16 06:26 Intake Total 1090 ml 800 ml 3477 ml Output Total 1250 ml 2550 ml Balance -160 ml 800 ml 927 ml Intake Oral 770 ml 800 ml 2106 ml IV Total 320 ml 1371 ml Output Urine Total 1250 ml 2550 ml # Voids 3 3 6 Exam General: no acute distress, stiff from lying in bed HEENT: sclerae anicteric, Chest: Breathing comfortably Cardiac: S1S2, no murmur Abdomen: BS normal, non-tender, no significant hematoma or bruising at left groin Extremities: No edema Neuro: A&O, cranial nerves symmetric, motor strength and coordination normal IVs and Medications Medications Reviewed: Medications were reviewed in detail Lab and Diagnostics Result Diagram: 05/23/16 1533 05/23/16 0240 X-Rays, CTs and MRIs X-RAY CHEST ONE VIEW, PORTABLE 05/21 IMPRESSION: No acute pulmonary process. Dictated by: Angella Benitez M.D. on 05/21/2016 at 16:08 Approved by: Angella Benitez M.D. on 05/21/2016 at 16:09 12-lead ECG Normal sinus rhythm rate 68. [address] segment depressions. Prominent R waves in V1 to V3 Cardiac Echo Impressions Echocardiogram Report Name: NONI JESENIA Sophia Study Date: 05/22/2016 Interpretation Summary The left ventricle is normal in size. Left ventricular systolic function is mildly reduced. The ejection fraction is estimated to be 45-50%. There is hypokinesis along the proximal and mid anterolateral, inferolateral wall and part of the inferior wall. Assessment of diastolic parameters indicates normal left ventricular diastolic function and normal filling pressures. The right ventricle is normal in size and function. The right ventricular systolic pressure is estimated at 25 mmHg assuming a right atrial pressure of 3 mm Hg. The left atrium is mildly dilated. Right atrial size is normal. There is no significant valvular heart disease. The aortic root is normal size. . Assessment & Plan Jesenia Crump is a 45 y/o male with poorly controlled hypertension, former smoking, presenting to [facility] emergency department via EMS c/o substernal Chest pain. #. Non ST elevation Myocardial Infarction. Present on admission. Risk factors for Acute coronary syndrome prior TIA, untreated Hypertension, sedentary lifestyle. No prior stress test or Myocardial infarction. Underwent left circumflex angioplasty with MELANIE. - monitor on telemetry - Repeat hemoglobin in a.m. after transfusion for residual blood loss - continue Plavix for 1 year, and Aspirin for antithrombotic therapy - Cardiology service to evaluate for discharge home probably on 05/24 #. Acute systolic congestive heart failure. LVEF 45%. Related to current ischemic syndrome; may improve with revascularization and recovery. - Beta zev and NEVIN inhibitor - Aspirin and statin #. Acute Kidney Injury. Present on admission. Patient with congenital unilateral kidney - avoid nephrotoxic insults - IV fluids after cardiac cath - monitor urine output #. Hypertension, uncontrolled -Beta zev and NEVIN inhibitor #. Nicotine dependence. He stopped smoking, mostly 1-2 years ago. Cessation discussed and encouraged. - OK for patient to use his home supply of nicotine lozenges - Acetaminophen as needed for mild pain/fever/headache - Bowel regimen as needed - Antiemetic as needed Disposition: Anticipate repeat cardiac intervention on 05/23 with discharge home likely 4 AM . GI Prophylaxis: Not indicated Resuscitation Status: CPR: Attempt Resuscitation Time spent 20 minutes Jerel Castaneda MD May 23, 2016 17:14
[2016-05-23] MEDS: 0.9% Sodium Chloride 1,000 ML IV PRN (17:19)
[2016-05-24] MEDS: Sodium Chloride LOK Flush 10 mL Syringe IVFLUSH SCH ×2 (00:04→09:08)
[2016-05-24 00:30] VITALS: BP 115/65; PULSE 60; RESP 19; O2SAT 95
[2016-05-24 02:58] LABS: Mean Corpuscular Hemoglobin 29.3 pg (27.0-35.0); Mean Corpuscular Volume 88.8 fL (81-100)
--- NOTE | 2016-05-24 04:24 | NUR ---
P: c/o insomnia, restless I: restoril E: Off BR since 2099. Able to sleep for first half of night. AM hours stood at bedside. Sat in chair for approx 10 mins, standing again and now back to bed. Denies pain, dyspnea, N/V. L groin tenderness w/ palpation. Diffuse bruising w/ edema L groin to scrotum. Tegaderm w/ old drainage, soft. Weak, palpable bilateral dorsal pulses. Tele SR. Stable BP. Stable H&H. RA sats in the mid 90s asleep. Snoring w/ some sleep apnea. Not affecting 02 saturations or HR.
[2016-05-24 04:30] VITALS: BP 113/73; PULSE 64; RESP 15; O2SAT 95
[2016-05-24 07:44] VITALS: PULSE 62
[2016-05-24 07:46] VITALS: BP 117/65; PULSE 62; O2SAT 98
--- NOTE | 2016-05-24 07:48 | NUR ---
PCC TELEMETRY Patient reports he has been up several times and sitting in the chair. Patient requesting to ambulate to bathroom. Vital signs stable. Patient reports pain only with certain movement but refuses an pain medication. Site vastly bruised but soft. Order received to change patient status to PCC with telemetry. Patient placed on a portable heart monitor. Patient up and ambulated to bathroom tolerated well.
--- NOTE | 2016-05-24 08:20 | PCM.PNMED ---
Subjective Date of Service May 24, 2016 Subjective No chest pain or dyspnea. He has left leg pain and swelling as well as scrotal edema. NO abdomen pain. He is constipated. Exam Vital Signs Vital Sign - Last Date Time Temp Pulse Resp B/P Pulse Ox O2 Delivery O2 Flow Rate FiO2 05/24/16 07:46 37.0 62 117/65 98 Room Air 05/24/16 04:30 15 Intake and Output 05/23/16 05/23/16 05/24/16 Cumulative From/Thru 15:00 23:00 07:00 05/21/16 15:55 - 05/24/16 05:20 Intake Total 402 ml 1960 ml 5919 ml Output Total 475 ml 925 ml 3950 ml Balance -475 ml 402 ml 1035 ml 1969 ml Intake Oral 960 ml 3066 ml IV Total 52 ml 1000 ml 2503 ml Packed Cells 350 ml 350 ml Output Urine Total 475 ml 925 ml 3950 ml # Voids 2 8 # Bowel Movements 0 0 0 Exam General: no acute distress, stiff from lying in bed HEENT: sclerae anicteric, Chest: Breathing comfortably Cardiac: S1S2, no murmur Abdomen: BS normal, non-tender, no significant hematoma or bruising at left groin Extremities: No edema Neuro: A&O, cranial nerves symmetric, motor strength and coordination normal He is ambulating. Alert and cheerful/ Scrotal edema and ecchymosis. Left thight bruising. IVs and Medications Medications Reviewed: Medications were reviewed in detail Lab and Diagnostics Result Diagram: 05/24/16 0245 05/24/16 0245 X-Rays, CTs and MRIs X-RAY CHEST ONE VIEW, PORTABLE 05/21 IMPRESSION: No acute pulmonary process. Dictated by: Angella Benitez M.D. on 05/21/2016 at 16:08 Approved by: Angella Benitez M.D. on 05/21/2016 at 16:09 12-lead ECG Normal sinus rhythm rate 68. [address] segment depressions. Prominent R waves in V1 to V3 Cardiac Echo Impressions Echocardiogram Report Name: JESENIA CHENEY Study Date: 05/22/2016 Interpretation Summary The left ventricle is normal in size. Left ventricular systolic function is mildly reduced. The ejection fraction is estimated to be 45-50%. There is hypokinesis along the proximal and mid anterolateral, inferolateral wall and part of the inferior wall. Assessment of diastolic parameters indicates normal left ventricular diastolic function and normal filling pressures. The right ventricle is normal in size and function. The right ventricular systolic pressure is estimated at 25 mmHg assuming a right atrial pressure of 3 mm Hg. The left atrium is mildly dilated. Right atrial size is normal. There is no significant valvular heart disease. The aortic root is normal size. . Assessment & Plan Jesenia Cheney is a 45 y/o male with poorly controlled hypertension, former smoking, presenting to [facility] emergency department via EMS c/o substernal Chest pain. #. Non ST elevation Myocardial Infarction. Present on admission. Risk factors for Acute coronary syndrome prior TIA, untreated Hypertension, sedentary lifestyle. No prior stress test or Myocardial infarction. Underwent RCA angioplasty with MELANIE (5 stents). - monitor on telemetry - Repeat hemoglobin in a.m. after transfusion for residual blood loss - continue Plavix for 1 year, and Aspirin for antithrombotic therapy - Cardiology service to evaluate for discharge home probably on 05/24 #. Acute systolic congestive heart failure. LVEF 45%. Related to current ischemic syndrome; may improve with revascularization and recovery. - Beta zev and NEVIN inhibitor - Aspirin and statin #. Acute Kidney Injury. Present on admission. Patient with congenital unilateral kidney - avoid nephrotoxic insults - IV fluids after cardiac cath - monitor urine output #. Hypertension, uncontrolled -Beta zev and NEVIN inhibitor #. Nicotine dependence. He stopped smoking, mostly 1-2 years ago. Cessation discussed and encouraged. - OK for patient to use his home supply of nicotine lozenges - Acetaminophen as needed for mild pain/fever/headache - Bowel regimen as needed - Antiemetic as needed # Left leg and scrotal hematome, stable. Follow clinically # Acute blood loss anemia, had one unit PRBC. Stable. Disposition: Anticipate repeat cardiac intervention on 05/23 with discharge home likely 4/ AM . Pain Evaluation: Adequate Pain Control GI Prophylaxis: Not indicated Resuscitation Status: CPR: Attempt Resuscitation Time spent 30 min Lucio Hollis MD May 24, 2016 08:20
[2016-05-24 09:06] VITALS: PULSE 72
--- NOTE | 2016-05-24 10:35 | PROG NOTE ---
[address] [address] PROGRESS NOTE PATIENT: JESENIA CHENEY : 1970 MR#: [id number] ADMIT: 05/21/2016 JOB ID: [id number] DATE: 05/24/2016 CARDIOLOGY PROGRESS NOTE: CHIEF COMPLAINT: The patient came in with a non-STEMI, status post stents to the circumflex artery and then, yesterday went for stents to the right coronary artery. Unfortunately, there was access site bleeding leading to need for transfusion, as well as a significant bleeding into the scrotal area, also a significant amount of bruising. Pressure was held for about 45 minutes, and a CT of the pelvis showed subcutaneous hemorrhage within the left inguinal region extending into the scrotum with a moderate-sized hematoma noted in the scrotal sac, minimal fluid extending into the pelvic cavity along the left external iliac artery. He was given transfusion as well. SUBJECTIVE: The patient denies any chest pain or chest pressure. He does have some discomfort in the groin area, as well as in the scrotal area. It is affecting his walking. However, he would like to like to go home. PHYSICAL EXAMINATION: Blood pressure 117/65, heart rate 62, sats are 98% on room air. General: In no acute distress. Speaking in full sentences without apparent shortness of breath. Head and neck exam: Normocephalic, atraumatic. Neck: No JV distention. Heart exam: Regular rate and rhythm. I do not appreciate murmurs, gallops, or rubs appreciated. Lungs: Sound clear. Back: No CVA tenderness to palpation. Abdomen: Soft, nondistended. Groin area: There is significant bruising, and the scrotum is swollen. I do not appreciate any bruits on evaluation of the left groin area. He has good distal pulses. There is no breakdown of the skin in the groin, and both groins have significant bruising. LABORATORIES: Today show a white count 10.6, H and H of 12 and 36.3, platelets 205,000. Chemistry shows sodium 138, potassium 4.4, chloride and bicarb of 103 and 20, respectively. BUN and creatinine 17 and 1.27. CURRENT MEDICATIONS: Include: 1. Metoprolol 25 mg q.8 h. 2. Lisinopril 10 mg daily. 3. Plavix 75 daily. 4. Aspirin 81 mg daily. 5. Lipitor 40 q.h.s. IMPRESSION: The patient is now status post stenting to the circumflex artery, as well as the right coronary artery. Unfortunately, his second procedure had problems with access site bleeding leading to a significant hematoma in the scrotal area. Pressure was held to stop active bleeding, and he had to receive a transfusion. PLAN: 1. He is advised to take aspirin and Plavix regularly without any fail because of the stents in the circumflex and RCA 2. He is to avoid heavy lifting for at least five days as a general rule, and he needs to modify his activity if he has difficulty. 3. I did give him prescription for some tramadol for the pain to avoid him using ibuprofen or Aleve. 4. He will need a close followup with Dr. Copeland in possibly one or two weeks depending on his circumstances. We need to keep an eye on him and make sure that his hematoma is resolving. I spent 30 minutes reviewing the patient's records, speaking with an examining the patient. I also communicated my recommendations to the hospital team GERMAN
--- NOTE | 2016-05-24 10:37 | PCM.DIMED ---
Discharge Instructions Date of Service May 24, 2016 Dates of Hospitalization May 21, 2016 at 17:32 Discharge Diagnosis Discharge Diagnosis #. Non ST elevation Myocardial Infarction.5 Stents to the right coronary artery. #. Acute systolic congestive heart failure. #. Acute Kidney Injury #. Hypertension, #. Nicotine dependence. # Left leg and scrotal hematoma # Acute blood loss anemia Diet Low fat, Low Sodium, Heart Healthy Activity Limited until seen by PCP Call your provider Shortness of breath, Bleeding, Chest pain, Other (Increased swelling of leg or scrotum) Patient Instructions Follow-up Provider: Wild Copeland MD Follow-up with PCP in: 1 week Lucio Hollis MD May 24, 2016 10:37
[2016-05-24] MEDS ORDERED: NITR0.4T SL (10:39)
[2016-05-24] MEDS ORDERED: LISI-610 PO (10:39)
[2016-05-24] MEDS ORDERED: CLOP75TA28 PO (10:39)
[2016-05-24] MEDS ORDERED: METO25TA6 PO (10:39)
[2016-05-24] MEDS ORDERED: ASPI81TA3 PO (10:39)
[2016-05-24] MEDS ORDERED: ATOR40TA69 PO (10:39)
--- NOTE | 2016-05-24 12:16 | NUR ---
Discharge Patient reports feeling like he is ready to go home. Vital signs stable . Reviewed labs with Dr. Morrison who cleared patient to go home along with cards on closure devices and stents. Orders done per Dr. Hollis. Packets on HTN , Heart catheter and all medications given to patient along with precautions and symptoms to know r/t to procedure and complications. Patient denied any questions and reports he will have family at home. Patient assisted out of facility via wheel chair for his sister to drive him home, with out incident.
--- NOTE | 2016-05-24 15:01 | PCM.DC.MED ---
Discharge Summary Date of Service May 24, 2016 Dates of Hospitalization Date of Hospital Admission May 21, 2016 at 17:32 Date of Discharge: May 24, 2016 Providers: Admitting Physician: Jonathan Bazzi MD Primary Care Physician: Graciela Davidson MD Attending Physician: Jonathan Bazzi MD Diagnosis at Time of Discharge Diagnosis at Time of Discharge #. Non ST elevation Myocardial Infarction.5 Stents to the right coronary artery. #. Acute systolic congestive heart failure. #. Acute Kidney Injury #. Hypertension, #. Nicotine dependence. # Left leg and scrotal hematoma # Acute blood loss anemia Consultations Cardiology Procedures XRay, CTs & MRIs X-RAY CHEST ONE VIEW, PORTABLE 05/21 IMPRESSION: No acute pulmonary process. Dictated by: Angella Benitez M.D. on 05/21/2016 at 16:08 Approved by: Angella Benitez M.D. on 05/21/2016 at 16:09 ECG 12 Lead Normal sinus rhythm rate 68. [address] segment depressions. Prominent R waves in V1 to V3 Cardiac Echo Impression Echocardiogram Report Name: JESENIA CHENEY Study Date: 05/22/2016 Interpretation Summary The left ventricle is normal in size. Left ventricular systolic function is mildly reduced. The ejection fraction is estimated to be 45-50%. There is hypokinesis along the proximal and mid anterolateral, inferolateral wall and part of the inferior wall. Assessment of diastolic parameters indicates normal left ventricular diastolic function and normal filling pressures. The right ventricle is normal in size and function. The right ventricular systolic pressure is estimated at 25 mmHg assuming a right atrial pressure of 3 mm Hg. The left atrium is mildly dilated. Right atrial size is normal. There is no significant valvular heart disease. The aortic root is normal size. . Invasive Procedures Cardiac angiogram and PCI with stenting of RCA (5 stents) Brief History Jesenia Cheney is a 45 yo male with Uncontrolled Hypertension, previous Transient ischemic attack and current smoker, presenting to [facility] emergency department via EMS c/o substernal Chest pain. Patient states the onset was 1.5 hours prior while at work. 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 Associated symptoms includes diaphoresis. Upon arrival of EMS, he was in severe distress with associated severe chest pain. EKG on route in the presence of severe chest pain showed signs of posterior STEMI. He was given nitro x5 prior to arrival with almost complete relief of his chest pain upon arrival to the hospital He is a current smoker. He has been diagnosed with Hypertension but does not take antihypertensives. He has never had a stress test or major surgeries. He also reports having a mini stroke years ago Case discussed with Dr Ratliff, he discussed case with medical care evaluation specialist Retort Operator Dr Ramirez , initiating medical treatment with Heparin and aspirin. Hospital Course Jesenia Cheney is a 45 y/o male with poorly controlled hypertension, former smoking, presenting to [facility] emergency department via EMS c/o substernal Chest pain. #. Non ST elevation Myocardial Infarction. Present on admission. Risk factors for Acute coronary syndrome prior TIA, untreated Hypertension, sedentary lifestyle. No prior stress test or Myocardial infarction. Underwent RCA angioplasty with MELANIE (5 stents). - monitor on telemetry - Repeat hemoglobin in a.m. after transfusion for residual blood loss - continue Plavix for 1 year, and Aspirin for antithrombotic therapy - Cardiology service to evaluate for discharge home probably on 05/24 #. Acute systolic congestive heart failure. LVEF 45%. Related to current ischemic syndrome; may improve with revascularization and recovery. - Beta zev and NEVIN inhibitor - Aspirin and statin #. Acute Kidney Injury. Present on admission. Patient with congenital unilateral kidney - avoid nephrotoxic insults - IV fluids after cardiac cath - monitor urine output #. Hypertension, uncontrolled -Beta zev and NEVIN inhibitor #. Nicotine dependence. He stopped smoking, mostly 1-2 years ago. Cessation discussed and encouraged. - OK for patient to use his home supply of nicotine lozenges - Acetaminophen as needed for mild pain/fever/headache - Bowel regimen as needed - Antiemetic as needed # Left leg and scrotal hematome, stable. Follow clinically # Acute blood loss anemia, had one unit PRBC. Stable. Disposition: Anticipate repeat cardiac intervention on 05/23 with discharge home likely 05/24 AM Hospital course: He was admitted as a NSTEMI and taken to the laboratory tester. He was stented and this complicated by a right thigh and scrotal hematoma. He developed a blood loss anemia and was transfused one unit of PRBC. He was seem by cardiology and felt to be stable for discharge on May 24. . Exam Vital Signs (Last) Date Time Temp Pulse Resp B/P Pulse Ox O2 Delivery O2 Flow Rate FiO2 05/24/16 09:06 72 05/24/16 07:46 37.0 117/65 98 Room Air 05/24/16 04:30 15 Test 05/21/16 15:58 05/21/16 17:15 05/21/16 22:45 05/22/16 04:25 Activated Partial Thromboplast Time 26.1sec (22.8-33.0) Magnesium Level 1.7mg/dL (1.6-2.6) Hold Mckeon Top Tube Received (Received) Hemoglobin A1c 6.1% (4.8-5.6) Total Creatine Kinase 2531U/L (21-232) Creatine Kinase MB 272.5ng/mL (0.0-10.4) Creatine Kinase MB % 10.8% (0.0-5.0) Troponin T 6.03ug/L (0.0-0.011) Neutrophils (%) (Auto) 68.4% (40-74) Lymphocytes (%) (Auto) 22.8% (14-46) Monocytes (%) (Auto) 7.0% (4-12) Eosinophils (%) (Auto) 1.3% (0-5) Basophils (%) (Auto) 0.3% (0-3) Triglycerides Level 371mg/dL (0-149) Cholesterol Level 189mg/dL (100-199) LDL Cholesterol, Calculated 87.800mg/dL (0-99) VLDL Cholesterol 74.200mg/dL HDL Cholesterol 27mg/dL (>39) Cholesterol/HDL Ratio 7.00 (0.0-4.4) Test 05/23/16 02:40 05/24/16 02:45 Total Bilirubin 0.6mg/dL (0.0-1.2) Aspartate Amino Transf (AST/SGOT) 90U/L (0-50) Alanine Aminotransferase (ALT/SGPT) 37U/L (0-44) Alkaline Phosphatase 40U/L (25-150) Total Protein 6.4g/dL (6.4-8.4) Albumin 4.1g/dL (3.4-5.0) White Blood Count 10.6th/mm3 (3.8-10.1) Red Blood Count 4.09mil/mm3 (4.40-5.80) Hemoglobin 12.0g/dL (13.8-17.2) Hematocrit 36.3% (41.0-50.0) Mean Corpuscular Volume 88.8fL (81-100) Mean Corpuscular Hemoglobin 29.3pg (27.0-35.0) Mean Corpuscular Hemoglobin Concent 33.1% (32.0-37.0) Red Cell Distribution Width 13.0% (12.3-15.4) Platelet Count 205bil/L (150-400) Sodium Level 138mEq/L (134-144) Potassium Level 4.4mEq/L (3.5-5.2) Chloride Level 103mEq/L (97-108) Carbon Dioxide Level 20mmol/L (18-29) Blood Urea Nitrogen 17mg/dL (6-24) Creatinine 1.27mg/dL (0.76-1.27) Estimat Glomerular Filtration Rate 65mL/min (>59) Glucose Level 117mg/dL (60-99) Calcium Level 8.9mg/dL (8.5-10.1) Discharge Medications Discharge Medications Aspirin (Aspirin) 81 Mg Tablet 81 MG PO DAILY (Reported) Aspirin Chew (Aspirin Chew) 81 Mg Chew 81 MG PO DAILY Prescribed by: LUCIO ROBERT MD Atorvastatin Calcium (Atorvastatin Calcium) 40 Mg Tablet 40 MG PO HS Prescribed by: LUCIO ROBRET MD Clopidogrel (Clopidogrel) 75 Mg Tablet 75 MG PO DAILY Prescribed by: LUCIO ROBERT MD Lisinopril (Zestril) 10 Mg Tablet 10 MG PO DAILY Prescribed by: LUCIO ROBERT MD Metoprolol Tartrate (Metoprolol Tartrate) 25 Mg Tablet 25 MG PO Q8H Prescribed by: LUCIO ROBERT MD As needed Nitroglycerin SL (Nitrostat) 0.4 Mg Tab.subl 0.4 MG SL Q5MIN PRN PRN For Chest Pain One nitro every 5 min until pain stops. Call 911 if pain not gone after 3 doses Prescribed by: LUCIO ROBERT MD Followup Plan Disposition: Home with family. Discharge Diet: Low fat, Low Sodium, Heart Healthy Discharge Activity: Limited until seen by PCP Follow-up Provider: Wild Copeland MD Follow-up with PCP in: 1 week Time spent 45 mins Lucio Robert MD May 24, 2016 15:01
== END 2016-05-24 11:30 | disposition home or self-care (01) | DRG 246 ==
LOC: SED 15:07 → EDBD 15:07 → CCU 17:32 → PCC 05-22 09:00 → CCU 05-23 16:52 → PCC 05-24 07:43
PROVIDERS: ADMIT Hospitalist; ATTEND Hospitalist
PROC: 027034Z Dilation of Coronary Artery, One Artery with Drug-eluting Intraluminal Device, Percutaneous Approach (ICD-10-PCS; 2016-05-21)
PROC: 4A023N7 Measurement of Cardiac Sampling and Pressure, Left Heart, Percutaneous Approach (ICD-10-PCS; 2016-05-21)
PROC: B2111ZZ Fluoroscopy of Multiple Coronary Arteries using Low Osmolar Contrast (ICD-10-PCS; 2016-05-21)
PROC: 3E07317 Introduction of Other Thrombolytic into Coronary Artery, Percutaneous Approach (ICD-10-PCS; 2016-05-21)
PROC: 027037Z Dilation of Coronary Artery, One Artery with Four or More Drug-eluting Intraluminal Devices, Percutaneous Approach (ICD-10-PCS; principal; 2016-05-23)
PROC: 30233N1 Transfusion of Nonautologous Red Blood Cells into Peripheral Vein, Percutaneous Approach (ICD-10-PCS; 2016-05-23)
DX: I21.4 Non-ST elevation (NSTEMI) myocardial infarction (principal); I50.21 Acute systolic (congestive) heart failure; Q60.0 Renal agenesis, unilateral; N17.9 Acute kidney failure, unspecified; I97.630 Postprocedural hematoma of a circulatory system organ or structure following a cardiac catheterization; D62 Acute posthemorrhagic anemia; I10 Essential (primary) hypertension; I25.10 Atherosclerotic heart disease of native coronary artery without angina pectoris; R73.03 Prediabetes; E78.5 Hyperlipidemia, unspecified; F17.210 Nicotine dependence, cigarettes, uncomplicated; Y84.0 Cardiac catheterization as the cause of abnormal reaction of the patient, or of later complication, without mention of misadventure at the time of the procedure